=== PATIENT | female | born 1980 | race Caucasian/White ===

== ENCOUNTER 2016-11-13 08:00 | Outpatient (CLI) | payer OTHER | END 2016-11-13 23:59 | disposition home or self-care (01) | LOC: LAB.R 08:00 | PROVIDERS: ATTEND Obstetrics & Gynecology | DX: Z11.3 Encounter for screening for infections with a predominantly sexual mode of transmission (principal) | CPT/HCPCS: 87491; 87591 ==

== ENCOUNTER 2016-11-15 15:35 | Outpatient (CLI) | payer OTHER ==
[2016-11-15 16:22] LABS: BILIRUBIN,URINE NEGATIVE (NEGATIVE)
[2016-11-15 16:24] LABS: BASOPHILS # (AUTO) 0.1 10^3/uL (0.0-0.1); BASOPHILS % (AUTO) 0.8 %; EOSINOPHILS # (AUTO) 0.1 10^3/uL (0.0-0.7); EOSINOPHILS % (AUTO) 1.3 %; HCT - HEMATOCRIT 39.8 % (37.0-47.0); HGB - HEMOGLOBIN 13.6 g/dL (12.0-16.0); LYMPHOCYTES # (AUTO) 2.3 10^3/uL (1.5-3.5); LYMPHOCYTES % (AUTO) 21.3 %; MEAN CORPUSCULAR HEMOGLOBIN 30.1 pg (27.0-31.0); MEAN CORPUSCULAR HGB CONC 34.2 g/dL (32.0-36.0); MEAN CORPUSCULAR VOLUME 88.1 fL (81.0-99.0); MEAN PLATELET VOLUME 8.3 fL (7.9-10.8); MONOCYTES # (AUTO) 0.8 10^3/uL (0.0-1.0); MONOCYTES % (AUTO) 7.1 %; NEUTROPHILS # (AUTO) 7.4 10^3/uL (1.5-6.6); NEUTROPHILS % (AUTO) 69.5 %; RED BLOOD COUNT 4.52 10^6/uL (4.20-5.40); RED CELL DISTRIBUTION WIDTH 11.9 % (12.0-15.0); UNCORRECTED WHITE BLOOD COUNT 10.7 x10^3/uL; WHITE BLOOD COUNT 10.7 x10^3/uL (4.8-10.8)
[2016-11-15 16:30] LABS: WBC,URINE 0-3 /HPF (0-5)
[2016-11-17 16:23] LABS: TEST RESULT REPORT (())
== END 2016-11-15 15:36 | disposition home or self-care (01) ==
LOC: LAB 15:35
PROVIDERS: ATTEND Obstetrics & Gynecology
DX: Z36 Encounter for antenatal screening of mother (principal)
CPT/HCPCS: 36415; 81001; 81599; 85025; 86762; 86780; 86850; 86900; 86901; 87340; 87389

== ENCOUNTER 2017-03-21 15:06 | Outpatient (CLI) | payer OTHER | END 2017-03-21 15:07 | disposition home or self-care (01) | LOC: LAB 15:06 | PROVIDERS: ATTEND Obstetrics & Gynecology | DX: Z36.9 Encounter for antenatal screening, unspecified (principal) | CPT/HCPCS: 36415; 82950; 85018; 86850 ==

== ENCOUNTER 2017-03-27 07:56 | Outpatient (CLI) | payer OTHER ==
[2017-03-27 08:51] LABS: GTT GLUCOSE,FASTING 85 mg/dL (70-100)
== END 2017-03-27 07:57 | disposition home or self-care (01) ==
LOC: LAB 07:56
PROVIDERS: ATTEND Obstetrics & Gynecology
DX: O99.810 Abnormal glucose complicating pregnancy (principal)
CPT/HCPCS: 36415; 82951

== ENCOUNTER 2017-05-02 09:46 | Outpatient (CLI) | payer OTHER ==
[2017-05-02 10:16] VITALS: BP 102/62
== END 2017-05-02 10:45 | disposition home or self-care (01) ==
LOC: WFO 09:46 → FBP 09:55 → WFO 10:45
PROVIDERS: ATTEND Obstetrics & Gynecology
DX: O30.043 Twin pregnancy, dichorionic/diamniotic, third trimester (principal); Z3A.32 32 weeks gestation of pregnancy
CPT/HCPCS: 59025

== ENCOUNTER 2017-05-07 10:39 | Outpatient (CLI) | payer OTHER | END 2017-05-07 10:40 | disposition home or self-care (01) | LOC: LAB.R 10:39 | PROVIDERS: ATTEND Obstetrics & Gynecology | DX: O36.8131 Decreased fetal movements, third trimester, fetus 1 (principal) | CPT/HCPCS: 82731 ==

== ENCOUNTER 2017-05-07 10:47 | Outpatient (CLI) | payer OTHER ==
[2017-05-07 11:52] VITALS: BP 116/70
== END 2017-05-07 12:15 | disposition home or self-care (01) ==
LOC: WFO 10:47 → FBP 10:50 → WFO 12:15
PROVIDERS: ATTEND Obstetrics & Gynecology
DX: O30.043 Twin pregnancy, dichorionic/diamniotic, third trimester (principal); Z3A.33 33 weeks gestation of pregnancy
CPT/HCPCS: 59025; 82731

== ENCOUNTER 2017-05-16 15:23 | Outpatient (CLI) | payer OTHER ==
[2017-05-16 16:20] VITALS: BP 116/65
== END 2017-05-16 16:24 | disposition home or self-care (01) ==
LOC: WFO 15:23 → FBP 15:31 → WFO 16:24
PROVIDERS: ATTEND Obstetrics & Gynecology
DX: O30.009 Twin pregnancy, unspecified number of placenta and unspecified number of amniotic sacs, unspecified trimester (principal); Z3A.00 Weeks of gestation of pregnancy not specified
CPT/HCPCS: 59025

== ENCOUNTER 2017-05-25 16:30 | Outpatient (CLI) | payer OTHER | END 2017-05-25 16:31 | disposition home or self-care (01) | LOC: LAB.R 16:30 | PROVIDERS: ATTEND Obstetrics & Gynecology | DX: Z36.89 Encounter for other specified antenatal screening (principal) | CPT/HCPCS: 87081 ==

== ENCOUNTER 2017-05-29 08:50 | Outpatient (CLI) | payer OTHER ==
[2017-05-29 09:04] VITALS: BP 108/64
== END 2017-05-29 10:10 | disposition home or self-care (01) ==
LOC: WFO 08:50 → FBP 08:54 → WFO 10:10
PROVIDERS: ATTEND Obstetrics & Gynecology
DX: O30.043 Twin pregnancy, dichorionic/diamniotic, third trimester (principal); Z3A.36 36 weeks gestation of pregnancy
CPT/HCPCS: 59025

== ENCOUNTER 2017-06-07 08:37 | Outpatient (CLI) | payer OTHER ==
[2017-06-07 09:08] VITALS: BP 116/62
== END 2017-06-07 09:45 | disposition home or self-care (01) ==
LOC: WFO 08:37 → FBP 08:38 → WFO 09:45
PROVIDERS: ATTEND Obstetrics & Gynecology
DX: O30.003 Twin pregnancy, unspecified number of placenta and unspecified number of amniotic sacs, third trimester (principal); Z3A.37 37 weeks gestation of pregnancy
CPT/HCPCS: 59025

== ENCOUNTER 2017-06-13 05:46 | Inpatient (IN) | payer OTHER ==
--- NOTE | 2017-06-12 10:48 | PREOP HISTORY & PHYSICAL ---
DATE OF ADMISSION: 06/13/2017 Physician: Bisi Squires DO IDENTIFICATION: This is a 37-year-old G3, P1-0-1-1 with 38-1/7-week intrauterine . EDC is 06/25/2017, consistent with an 8-week ultrasound. HISTORY OF PRESENT ILLNESS: This patient presents today for her scheduled preoperative visit. Patient has a diamniotic dichorionic twin gestation that was diagnosed at her 8-week ultrasound. Her has so far been unremarkable. She has had routine care including serial ultrasounds for growth at the [facility]. She has also been having weekly nonstress tests, which have been very reassuring. She has had no problems with diabetes, hypertension, bleeding or labor with this . Most recent bedside ultrasound on 05/29/2017 at 36 weeks 1 day showed that the babies are both cephalic with both backs to the maternal right side. Twin A is a male, and twin B is a female. Most recent 05/22/2017 [facility] growth ultrasound showed that twin A, whose anticipated name is Aleksandar, has a right lateral placenta that is a 3-vessel cord, amniotic fluid is normal with the MVP of 3.7 cm, estimated weight is 2670 grams or in the 55th percentile. Twin B is a female fetus with anticipated name of Allyssa has a left lateral placenta and 3-vessel umbilical cord. There is a normal amniotic fluid index with an MVP of 3.6 cm; estimated weight is 2814 grams, giving her 71st percentile. There was an incidental large left simple cyst measuring 5.3 x 6.0 x 5.0 cm. Appropriate growth for both fetuses. The patient's obstetrical history has been significant for a prior delivery for son, Nikita. Nikita underwent a primary delivery secondary to nonreassuring heart tones and a cervix remote from delivery. I recommended to the patient that we proceed to a scheduled repeat delivery. She also voiced her desire for permanent sterilization. I have had multiple discussions with her regarding the risks, benefits, alternatives, indications, expectations of repeat delivery as well as a bilateral salpingectomy. Patient understands the risk of hemorrhage, infection and damage to surrounding organs. With respect to damage to surrounding organs this may include, but is not limited to, an inverted laceration cauterization or ligation of the adjacent intestines, ureters, and bladder. Furthermore, with respect to sterilization, she understands that this surgery is meant to be irreversible. Patient understands that there are different forms of contraception available to her and that sterilization is not her only option. This includes systemic hormones, IUDs, NuvaRing, Nexplanon, and condoms. Although this surgery is meant to be permanent and irreversible there is an intrinsic tubal failure rate of less than 1%. Should the patient feel she is after this procedure, she is to contact me immediately, as there is an increased risk of an ectopic . After all of her questions were answered to her satisfaction she verbalized her desire to proceed with a repeat delivery and bilateral salpingectomy on 06/13/2017. Also, given the known presence of a left simple ovarian cyst, should this still be present during the case, I will go ahead and remove the cyst, as it may lead to ovarian torsion and cause the patient to undergo another surgery. The patient is currently is doing well. Denies any nausea, vomiting, fevers, chills, diarrhea, constipation. She reports that the babies are moving well and denies any vaginal bleeding, loss of fluid, or significant contractions. PAST MEDICAL HISTORY: GERD. PAST SURGICAL HISTORY: delivery x1 on 08/19/2014 at 41 weeks gestation. ALLERGIES: NO KNOWN DRUG ALLERGIES. MEDICATIONS 1. vitamins. 2. Pepcid p.r.n. SOCIAL HISTORY: The patient has a remote history of tobacco smoking. She quit more than a year ago and smoked for 10 years for less than 1 pack a day. She denies any alcohol or illicit drug use. Her is Javed, and her oldest son is Nikita. These are twins with anticipated names of Aleksandar and Allyssa. Her pharmacy of choice is [facility] in [place], [place]. PAST SURGICAL HISTORY: On 08/19/2014 at 41 weeks' gestation, a delivery secondary to nonreassuring heart tones and cervix remote from delivery of a viable male named Nikita. He weighed 9 pounds 9 ounces at [facility]. PAST ONCOLOGY HISTORY: She has had abnormal Pap smears with spontaneous resolution. She denies any cold knife cone, LEEPS, or cryotherapy. She denies any other sexually transmitted diseases. FAMILY HISTORY: Mother had a stroke at age 73. Brother had history with alcohol or drugs. REVIEW OF SYSTEMS: Negative unless otherwise stated. She denies any diarrhea, constipation, fevers or chills. PHYSICAL EXAMINATION VITAL SIGNS: Height is 64 inches. Weight is 212 pounds. BMI is 36.4, blood pressure 110/70. GENERAL: She is a well-developed, well-nourished, female, in no apparent distress. She is alert and oriented x3. She is extremely pleasant and easy to speak to. She is very intelligent. HEENT: Within normal limits. HEART: Regular. No murmurs or rubs. LUNGS: Lungs are clear to auscultation bilaterally. ABDOMEN: Gravid, nontender. Fundal height is 43 cm. A 36 week bedside ultrasound revealed that the babies were vertex-vertex. Twin A is male, twin B female. LABORATORY: Data reveal that she is chlamydia and gonorrhea negative. Blood type is O positive, antibody screen is negative. HIV negative. Rubella immune, hepatitis B surface antigen negative. RPR nonreactive. One hour GTT was 172, 3-hour is 85, 171, 167, 133, GBS negative. ASSESSMENT 1. A 37-year-old G3, P1-0-1-1 at 38-2/7 week di/di twin gestation. 2. Prior delivery x1. 3. Desires permanent sterilization. 4. Left simple ovarian cyst. PLAN 1. She is to get a preop CBC and typed and screened in anticipation for tomorrows surgery. 2. Consent forms have been signed for repeat delivery and bilateral tubal sterilization. Also consented the patient for a left ovarian cystectomy. 3. We will proceed to surgery tomorrow on 06/13/2017. 4. Anticipate using Prevena wound VAC to maximize healing. 5. She is to see me at [facility] next week for removal of Prevena wound VAC. 6. Prescriptions for ibuprofen, Tylenol, Colace, and oxycodone have been given to the patient for postoperative care. 7. She is to call should she have any worsening fevers, chills, abdominal pain or vaginal bleeding. TD: 06/11/2017 12:37 [facility]
[~2017-06-13 05:46] MED LIST: ONDANSETRON 4 MG/2 ML VIAL IVP PRN; SODIUM CHLORIDE FLUSH 0.9% 10 ML SYRINGE IVP PRN; ceFAZolin 2 GM/50 ML 2 GM/50 ML BAG IV SCH
[2017-06-13] MEDS: LACTATED RINGERS 1,000 ML IV SCH ×2 (06:30→19:34)
[2017-06-13 07:07] LABS: BASOPHILS # (AUTO) 0.1 10^3/uL (0.0-0.1); BASOPHILS % (AUTO) 0.7 %; EOSINOPHILS # (AUTO) 0.1 10^3/uL (0.0-0.7); EOSINOPHILS % (AUTO) 1.2 %; HGB - HEMOGLOBIN 13.6 g/dL (12.0-16.0); LYMPHOCYTES # (AUTO) 1.7 10^3/uL (1.5-3.5); LYMPHOCYTES % (AUTO) 16.2 %; MEAN CORPUSCULAR HEMOGLOBIN 29.8 pg (27.0-31.0); MEAN CORPUSCULAR HGB CONC 33.8 g/dL (32.0-36.0); MEAN CORPUSCULAR VOLUME 88.3 fL (81.0-99.0); MEAN PLATELET VOLUME 9.8 fL (7.9-10.8); MONOCYTES # (AUTO) 0.9 10^3/uL (0.0-1.0); NEUTROPHILS # (AUTO) 7.8 10^3/uL (1.5-6.6); NEUTROPHILS % (AUTO) 73.9 %; PLT - PLATELET COUNT 166 10^3/uL (130-450); RED BLOOD COUNT 4.56 10^6/uL (4.20-5.40); RED CELL DISTRIBUTION WIDTH 13.8 % (12.0-15.0); WHITE BLOOD COUNT 10.6 x10^3/uL (4.8-10.8)
[2017-06-13] MEDS ORDERED: CITRIC ACID/SODIUM CITRATE 15 ML UDC PO SCH (07:30)
[2017-06-13] MEDS ORDERED: LACTATED RINGERS 1,000 ML IV ONE ×3 (07:42→09:35)
[2017-06-13] MEDS ORDERED: ePHEDrine 50 MG/ML VIAL IVP ONE (08:40)
[2017-06-13] MEDS ORDERED: MORPHINE PF 5 MG/10 ML AMP EP ONE (08:40)
[2017-06-13] MEDS ORDERED: OXYTOCIN 10 UNIT/ML VIAL IV ONE (08:40)
[2017-06-13] MEDS ORDERED: ONDANSETRON 4 MG/2 ML VIAL IVP ONE (08:40)
[2017-06-13] MEDS ORDERED: ACETAMINOPHEN 1,000 MG/100 ML 100 ML IV ONE (08:40)
[2017-06-13] MEDS ORDERED: KETOROLAC 30 MG/ML VIAL IVP ONE (08:40)
[2017-06-13] MEDS ORDERED: MORPHINE 10 MG/ML VIAL IVP ONE (08:40)
[2017-06-13] MEDS: ACETAMINOPHEN 500 MG TABLET PO SCH ×2 (08:50→18:04)
[2017-06-13] MEDS ORDERED: OXYTOCIN/SODIUM CHLORIDE 250 ML IV SCH (09:00)
[2017-06-13] MEDS ORDERED: diphenhydrAMINE INJ 50 MG/ML VIAL IVP PRN ×2 (09:37→10:58)
[2017-06-13] MEDS ORDERED: MAGNESIUM HYDROXIDE 2,400 MG/30 ML UDC PO PRN (09:37)
--- NOTE | 2017-06-13 10:04 | OPERATIVE REPORT ---
Operative Report - General Admit Date: 06/13/17 - Other Other Information/Narrative: Date of operation: 06/13/2017 Surgeon: Bisi Squires DO FACOG [place]: MATILDE Louie Anesthestist: Baylee Figueroa CRNA Anesthesia: Spinal Pre-op Dx: 1. 37 yo with a 38w2d IUP 2. Prior CD x 1 3. Di-di twin gestation 4. Desired permanent sterilization 5. Left ovarian cyst Post-op Dx: 1. 37 yo with a 38w2d IUP 2. Prior CD x 1 3. Di-di twin gestation 4. Desired permanent sterilization 5. Left ovarian cyst Procedures: 1. Repeat delivery 2. Left ovarian cystectomy 3. Bilateral salpingectomy Findings: 1. Twin A: Viable male "Aleksandar", VTX, Apgars 9/9. 2. Twin B: Viable female "Alysia" VTX, Apgars 9/9. 3. Normal uterus, fallopian tubes and right ovary. 3. Left ovarian cyst Specimens: 1. Placenta (one clip on cord A, two clips on cord B) 2. Cord blood x 2 3. Left ovarian cyst 4. Bilateral fallopian tubes Drains: 1. Huntley catheter to gravity 2. Prevena wound vac EBL: 1000 mL Complications: None Dicatation: [id number]
[2017-06-13] MEDS ORDERED: NALBUPHINE 20 MG/ML AMP IVP PRN (10:52)
[2017-06-13] MEDS ORDERED: diphenhydrAMINE INJ 50 MG/ML VIAL IV PRN (10:53)
[2017-06-13] MEDS ORDERED: diphenhydrAMINE 25 MG CAPSULE PO PRN (10:54)
[2017-06-13] MEDS ORDERED: METOCLOPRAMIDE 10 MG/2 ML VIAL IVP PRN (10:54)
[2017-06-13] MEDS ORDERED: NALOXONE 0.4 MG/ML VIAL IVP PRN (11:00)
[2017-06-13] MEDS ORDERED: MORPHINE 2 MG/ML CARPUJECT IVP PRN (11:00)
[2017-06-13] MEDS: CELECOXIB 100 MG CAPSULE PO SCH ×2 (12:00→21:21)
[2017-06-13] MEDS ORDERED: MORPHINE 2 MG/ML SYRINGE IVP PRN (12:42)
[2017-06-13] MEDS: oxyCODONE 5 MG TABLET PO SCH (13:00)
[2017-06-13] MEDS: SIMETHICONE CHEW 80 MG TABLET PO SCH ×2 (13:09→21:21)
[2017-06-13] MEDS: DOCUSATE SODIUM 100 MG CAPSULE PO SCH (21:21)
[2017-06-14] MEDS: oxyCODONE 5 MG TABLET PO SCH ×7 (04:54→18:47)
[2017-06-14] MEDS: ACETAMINOPHEN 500 MG TABLET PO SCH ×3 (04:54→21:17)
--- NOTE | 2017-06-14 08:07 | PROVIDER PROGRESS NOTE ---
Subjective - Prog Note Date Prog Note Date: 06/14/17 Prog Note Time: 08:03 - Subjective Pt reports feeling: Improved Subjective: Patient lying in bed, eating breakfast. Feeling tired. Dr. Kraft examining babies. Aleksandar weighed 6 lbs 15oz and Alysia 6 lbs 3oz. Pain controlled and zhang catheter removed. Saline lock. Has not urinated yet. Would like Rx Miralax. Objective - Vital Signs/Intake & Output Vital Signs: Vital Signs x48h Temp Pulse Resp BP Pulse Ox 06/14/17 05:00 98.2 F 80 16 111/55 L 97 06/14/17 00:43 97.9 F 83 16 108/59 L 97 Intake & Output: Intake & Output 06/11/17 06/12/17 06/13/17 06/14/17 23:59 23:59 23:59 23:59 Intake Total 750 1302.5 Output Total 325 3350 Balance 425 -2047.5 - Objective General Appearance: positive: No acute distress Eyes Bilateral: positive: Normal inspection Abdomen: positive: Non-tender (Wound vac in place and working well) Neurologic/Psychiatric: positive: Oriented x3 - Lab Results Fish Bones: 06/13/17 06:54 Assessment/Plan - Problem List (1) Twin delivery by Impression: 37 yo S/p repeat CD, BS and left ovarian cystectomy 06/13/2017. Normal recovery. Routine care. Aggressive pain control with routine Celebrex and Tylenol; oxycodone as well. Ambulate and shower today. Remove saline lock. Rx miralax.
[2017-06-14] MEDS ORDERED: POLYETHYLENE GLYCOL 3350 17 GM PACKET PO PRN (08:08)
[2017-06-14] MEDS: DOCUSATE SODIUM 100 MG CAPSULE PO SCH ×2 (09:10→21:17)
[2017-06-14] MEDS: CELECOXIB 100 MG CAPSULE PO SCH ×2 (09:10→21:18)
[2017-06-14] MEDS: SIMETHICONE CHEW 80 MG TABLET PO SCH ×3 (09:10→18:36)
--- NOTE | 2017-06-14 11:00 | OPERATIVE REPORT ---
DATE OF SERVICE: 06/13/2017 Physician: Bisi Squires DO DATE OF OPERATION: 06/13/2017 SURGEON: Bisi Squires DO, FACOG GARBAGE PICK UP WORKER: uRby Gomez CNM, ARNP. CARDIOLOGY TECHNOLOGIST: Baylee Muhammad CRNA. ANESTHESIA: Spinal. PREOPERATIVE DIAGNOSES 1. A 37-year-old G3, P1-0-1-1 with 38 and 2/7 week intrauterine . 2. Prior delivery x1. 3. Diamniotic dichorionic twin gestation. 4. Desired permanent sterilization. 5. Left ovarian cyst. POSTOPERATIVE DIAGNOSES 1. A 37-year-old G3, P1-0-1-1 with 38 and 2/7 week intrauterine . 2. Prior delivery x1. 3. Diamniotic dichorionic twin gestation. 4. Desired permanent sterilization. 5. Left ovarian cyst. PREOPERATIVE PROCEDURE 1. Repeat delivery. 2. Left ovarian cystectomy. 3. Bilateral salpingectomy. FINDINGS: 1. Twin A: Viable male infant named Aleksandar in the vertex presentation. Apgars 9 and 9 at 1 and 5 minutes respectively. 2. Twin B: Viable female infant named Alysia in vertex presentation. Apgars 9 and 9 at 1 and 5 minutes respectively. 3. Normal uterus, fallopian tubes, and right ovary. 4. Left ovarian cyst. SPECIMENS 1. Placenta with 1 clip on cord A and 2 clips on cord B. 2. Cord blood x2. 3. Left ovarian cyst. 4. Bilateral fallopian tubes. DRAINS 1. Huntley catheter to gravity. 2. Prevena wound VAC. ESTIMATED BLOOD LOSS: 1000 mL COMPLICATIONS: None. BRIEF HISTORY: The patient is a patient of [facility] with whom we have been taking care of throughout her entire course. The patient was found to have a diamniotic dichorionic twin gestation at her first visit on 11/13/2016. Ultrasound of that time at 8 weeks was consistent with dates. The patient has had an unremarkable with the exception of the twin gestation. She has been seen routinely and has been getting nonstress tests and a growth ultrasounds as recommended. She has not had any irregular bleeding, hypertension or labor during this entire . The patient also verbalized her desire for a permanent sterilization, and consent forms were signed on 03/16/2017. A left ovarian cyst was noted during this and it was described as a simple cyst. The dimensions measured approximately 3.8 x 4.4 x 5.5 cm. It is also noted that the patient had a delivery with her first delivery secondary to nonreassuring heart tones and cervix remote from delivery. I Recommend to the patient that we proceed to a delivery at 38 weeks, as per the current ACOG recommendations. I discussed with the patient the risks , benefits, alternatives, indications, expectations of a repeat delivery, bilateral salpingectomy and left ovarian cystectomy. Include our discussion was the risk of hemorrhage, infection and damage to surrounding organs, which may be an inadvertent laceration, cauterization or ligation of the adjacent ureters, bladder and intestines. Furthermore, with sterilization, the patient understands that this is not her only form of contraception and that her , Javed, may have a vasectomy or she may have a different type of contraception such as systemic hormones, the IUD, or barrier methods. The patient also understands that this procedure is meant to be permanent and is irreversible. After all of the patient's questions were answered to her satisfaction, she verbalized her desire to proceed with the aforementioned procedures. Consent forms have been signed. OPERATION IN DETAIL: The patient was identified, consented, and taken to the operating room where IV access was already in place. She was then given sequential compression devices, which were placed on the lower extremities and turned on. The patient was then given satisfactory spinal anesthesia per Baylee Muhammad. Two grams of Ancef were given to the patient prior to incision. The patient was then prepped and draped in normal sterile fashion in a dorsal supine position with a leftward tilt. A Huntley catheter was placed in her bladder. A timeout was performed, which correctly identified the patient, type of procedure and the procedures themselves. A repeat skin testing found that spinal anesthesia was satisfactorily. The patient's Pfannenstiel scar was first sharply excised. The incision was then carried through the underlying layer of fascia with electrocautery. Fascia was nicked in the midline and extended laterally. The rectus muscles were then dissected off the fascia. The rectus muscles were identified in the midline and sharply in the midline. Peritoneum was entered bluntly and the incision was extended superiorly and inferiorly. A bladder flap was then created by dissecting the vesicouterine peritoneum. The hysterotomy was made in a transverse fashion. The smooth muscle of the uterus itself was quite a thick layer consistent with a nonlaboring uterus. Amniotomy revealed clear fluid. Twin A delivered vertex with the help of fundal pressure. The nose and mouth were suctioned upon delivery of the head. Again, with the help of fundal pressure, the rest of the baby delivered through the hysterotomy. The umbilical cord was doubly clamped and cut and the was then handed off to Dr. Baylee Barrett, the on-call laborer salvage. Umbilical cord blood was then obtained and sent off. One yellow plastic umbilical clamp was placed on twin A's remaining umbilical cord. Palpation of the second amnion revealed that Twin B was still vertex. Amniotomy revealed clear fluid. Again, with the help of fundal pressure, the delivered through the hysterotomy easily without difficulty. The nose and mouth were also suctioned with the bulb syringe. The umbilical cord was doubly clamped and cut and the again was handed off to Dr. Barrett. Umbilical cord blood was obtained and sent off. Two yellow umbilical clamps were placed on twin B's umbilical cord. The uterus was then massaged and placenta delivered manually. The uterus was then delivered out of the abdomen and cleared of all clots and debris. The hysterotomy was then closed with 2 stitches of 0 Vicryl, first in a running locked fashion and then in a Lembert stitch imbricating the hysterotomy. Hemostasis was noted. Attention was then turned towards the left ovarian cystectomy. An incision was made on the left ovary sharply. The left ovarian cyst was then sharply shelled out of the ovary. It was sent off the field intact. The left ovary was then closed with a single running stitch of 2-0 Vicryl. Hemostasis was noted. Attention was then turned towards the bilateral salpingectomy. The right fallopian tube was first identified and followed out to the fimbriated end. The fallopian tube was then excised using the LigaSure. Hemostasis was noted. In a similar fashion, the left fallopian tube was identified and then excised with the LigaSure. Again, hemostasis was noted. The uterus was then returned to the abdomen and the abdomen was copiously irrigated. Hemostasis was noted. The peritoneum was then closed with a running stitch of 2-0 Vicryl. The same stitch was used to reapproximate the rectus muscle. Fascia was then closed with 0 Vicryl in a running fashion. The Chuy's tissue was then reapproximated with a running stitch of 0 Vicryl. Skin was then closed with 4-0 Monocryl in subcuticular fashion. A Prevena wound VAC was finally placed on top of the incision. The patient tolerated the procedure well and was taken to the recovery room in stable and awake condition. The patient did receive Toradol as well as Ofirmev during closure of the incision in order to help with postoperative pain control. I will continue the patient on scheduled doses of Celebrex as well as Tylenol. She will also have scheduled oxycodone. All sponge, lap, and needle counts were correct x2 as per nurse report. TD: 06/13/2017 11:55 MTDD
[2017-06-14] MEDS: LACTATED RINGERS 1,000 ML IV SCH ×4 (11:52→11:55)
[2017-06-14] MEDS: SODIUM CHLORIDE FLUSH 0.9% 10 ML SYRINGE IVP SCH ×3 (11:52→11:54)
[2017-06-14] MEDS: BENZOCAINE/MENTHOL LOZENGE MM PRN (21:24)
[2017-06-15] MEDS: oxyCODONE 5 MG TABLET PO SCH ×4 (05:25→13:41)
[2017-06-15] MEDS: ACETAMINOPHEN 500 MG TABLET PO SCH ×3 (05:47→23:43)
[2017-06-15] MEDS: BENZOCAINE/MENTHOL LOZENGE MM PRN (05:50)
[2017-06-15] MEDS: DOCUSATE SODIUM 100 MG CAPSULE PO SCH ×2 (10:25→20:28)
[2017-06-15] MEDS: CELECOXIB 100 MG CAPSULE PO SCH ×2 (10:25→20:28)
[2017-06-15] MEDS: SIMETHICONE CHEW 80 MG TABLET PO SCH ×2 (10:25→20:28)
--- NOTE | 2017-06-15 12:38 | PROVIDER PROGRESS NOTE ---
Subjective - Prog Note Date Prog Note Date: 06/15/17 Prog Note Time: 12:34 - Subjective Pt reports feeling: Improved Subjective: Patient doing well. Breast feeding Alysia. Feeling better. Pain controlled ( declining oxycodone). Ambulating and tolerating a regular diet. Urinating without difficulty. Desires to go home tomorrow. Objective - Vital Signs/Intake & Output Reviewed Vital Signs: Yes Vital Signs: Vital Signs x48h Temp Pulse Resp BP Pulse Ox 06/15/17 09:32 97.9 F 74 16 113/66 97 Intake & Output: Intake & Output 06/12/17 06/13/17 06/14/17 06/15/17 23:59 23:59 23:59 23:59 Intake Total 750 1302.5 Output Total 325 3650 Balance 425 -2347.5 - Objective General Appearance: positive: No acute distress Abdomen: positive: Non-tender (Prevena wound vac in place and working well) Neurologic/Psychiatric: positive: Oriented x3, Mood/affect nml - Lab Results Fish Bones: 06/13/17 06:54 Assessment/Plan - Problem List (1) Twin delivery by Impression: 37 yo S/p repeat CD, BS and left ovarian cystectomy Normal recovery Routine care Scheduled Celebrex and acetaminophen Anticipate home tomorrow Has appointment for removal of Prevena wound vac 06/19/2017
--- NOTE | 2017-06-15 17:44 | DISCHARGE SUMMARY ---
Physician: Bisi Squires DO DATE OF ADMISSION: 06/13/2017 DATE OF DISCHARGE: 06/16/2017 DIAGNOSES ON ADMISSION: 1. A 37-year-old G3, P1-0-1-1 with 38 and 1/7 week intrauterine . 2. Di/di twin gestation. 3. Left ovarian cyst. DIAGNOSIS ON DISCHARGE: 1. A 37-year-old G3, P2-0-1-3, status post repeat delivery, bilateral salpingectomy, left ovarian cystectomy on 06/13/2017. 2. Normal recovery. HISTORY OF PRESENT ILLNESS: Masha Purvis presented to [facility] on 06/13/2017 for a scheduled repeat delivery. HOSPITAL COURSE: This is a known twin gestation. Masha underwent an unremarkable repeat delivery, bilateral salpingectomy and left ovarian cystectomy. EBL was about 1000 mL and she delivered two viable fetuses. Twin A is Aleksandar who weighed 6 pounds 15 ounces and the second twin, Alysia, who weighed 6 pounds 3 ounces. Apgars were 9 and 9 at 1 and 5 minutes respectively for each twin. Masha has had an unremarkable recovery. She is ambulating, tolerating a regular diet. She is urinating without difficulty. Her pain is controlled with Celebrex as well as Tylenol. She is urinating without difficulty. Anticipate discharge to home on 06/16/2017. Masha already has prescriptions for ibuprofen, Tylenol, Colace and Oxycodone should she need it. Masha will see me at [facility] on 06/19/2017 for removal of Prevena wound VAC, 1 week after that and for a routine 6-week visit. Masha will call should she have any worsening fevers, chills, abdominal pain or vaginal bleeding. TD: 06/15/2017 18:21 BRIAN
[2017-06-16] MEDS: ACETAMINOPHEN 500 MG TABLET PO SCH (07:59)
[2017-06-16] MEDS: CELECOXIB 100 MG CAPSULE PO SCH (09:01)
[2017-06-16] MEDS: DOCUSATE SODIUM 100 MG CAPSULE PO SCH (09:01)
[2017-06-16] MEDS: SIMETHICONE CHEW 80 MG TABLET PO SCH ×2 (09:01→14:23)
--- NOTE | 2017-06-16 09:33 | PROVIDER PROGRESS NOTE ---
Subjective - Prog Note Date Prog Note Date: 06/16/17 Prog Note Time: 09:31 - Subjective Pt reports feeling: Improved Subjective: Patient in bed, snuggling Alysia. Aleksandar in the bassinet sleeping. Doing well. Would like to go home by 3 PM since she has a friend watching [employer]. Pain well controlled. No nausea or vomiting. Ambulating and urinating without difficulty. Bleeding light. Objective - Vital Signs/Intake & Output Reviewed Vital Signs: Yes Vital Signs: Vital Signs x48h Temp Pulse Resp BP Pulse Ox 06/16/17 09:04 98.6 F 72 16 124/72 99 Intake & Output: Intake & Output 06/13/17 06/14/17 06/15/17 06/16/17 23:59 23:59 23:59 23:59 Intake Total 750 1302.5 Output Total 325 3650 Balance 425 -2347.5 - Objective General Appearance: positive: No acute distress Eyes Bilateral: positive: Normal inspection Abdomen: positive: Non-tender (Wound vac in place and working well) - Lab Results Fish Bones: 06/13/17 06:54 Assessment/Plan - Problem List (1) Twin delivery by Impression: 37 yo S/p repeat CD, BS and left ovarian cystectomy 06/13/2017 Normal recovery Discharge to home. Follow up next week for removal of Prevena wound vac. Patient has Rx at home for care. Limited activity-- less than 10 lbs. Call for worsening fevers, chills, abdominal pain or vaginal bleeding. Discharge Plan Disposition: Home, Self Care Condition: Good Diet: Regular Activity Restrictions: No lifting > 10 lbs Shower Restrictions: No Driving Restrictions: Yes (No driving after taking oxycodone) Weight Bearing: Full Weight No Smoking: If you smoke, Please STOP! Call for help.
[2017-06-16 15:32] VITALS: BP 122/67
== END 2017-06-16 15:00 | disposition home or self-care (01) | DRG 765 ==
LOC: FBP 05:46
PROVIDERS: ADMIT Obstetrics & Gynecology; ATTEND Obstetrics & Gynecology
PROC: 0UT70ZZ Resection of Bilateral Fallopian Tubes, Open Approach (ICD-10-PCS; 2017-06-13)
PROC: 0UB13ZZ Excision of Left Ovary, Percutaneous Approach (ICD-10-PCS; 2017-06-13)
PROC: 10D00Z1 Extraction of Products of Conception, Low, Open Approach (ICD-10-PCS; principal; 2017-06-13 07:30)
DX: O34.211 Maternal care for low transverse scar from previous cesarean delivery (principal); O30.043 Twin pregnancy, dichorionic/diamniotic, third trimester; Z30.2 Encounter for sterilization; O34.83 Maternal care for other abnormalities of pelvic organs, third trimester; N83.292 Other ovarian cyst, left side; N85.8 Other specified noninflammatory disorders of uterus; Z3A.39 39 weeks gestation of pregnancy; Z37.2 Twins, both liveborn; Z87.891 Personal history of nicotine dependence
CPT/HCPCS: 85025; 88302; 88305; 88307

== ENCOUNTER 2019-11-20 15:18 | Outpatient (CLI) | payer OTHER ==
--- NOTE | 2019-11-20 15:41 | XRAY Report ---
Reason: RIGHT KNEE PAIN Procedure Date: 11/20/2019 Accession Number: [id number] / [id number] Procedure: WCP - Knee 3 View RT CPT Code: Final Report FULL RESULT: PROCEDURE: Knee 3 View RT INDICATIONS: RIGHT KNEE PAIN TECHNIQUE: 3 views of the right knee(s) were acquired. COMPARISON: None. FINDINGS: Bones: No fractures or dislocations. No suspicious bony lesions. Mild tricompartmental periarticular osteophyte formation. Soft tissues: No joint effusion. No suspicious soft tissue calcifications. IMPRESSION: Osteoarthritis. No acute fracture. No osseous lesion. If symptoms and/or clinical suspicion for pathology continue, further assessment with repeat plain films, or advanced imaging (e.g., CT, MRI, or bone scan) is recommended for further assessment. Reviewed by: Abdiel Parker MD on 11/20/2019 3:40 PM PDT Approved by: Abdiel Parker MD on 11/20/2019 3:40 PM PDT Station ID: [id number]
== END 2019-11-20 23:59 | disposition home or self-care (01) ==
LOC: DI.WCP 15:18
PROVIDERS: ATTEND Family Medicine
DX: M17.11 Unilateral primary osteoarthritis, right knee (principal)

== ENCOUNTER 2020-05-03 14:00 | Outpatient (CLI) | payer BC | END 2020-05-03 14:01 | disposition home or self-care (01) | LOC: COV 14:00 | PROVIDERS: ATTEND Family Medicine | DX: R05 Cough (principal); R53.83 Other fatigue; J02.9 Acute pharyngitis, unspecified; R09.81 Nasal congestion; Z20.828 Contact with and (suspected) exposure to other viral communicable diseases ==

== ENCOUNTER 2020-08-16 21:38 | Outpatient (CLI) | payer BC | END 2020-08-16 21:39 | disposition home or self-care (01) | LOC: COV 21:38 | PROVIDERS: ATTEND Family Medicine | DX: Z20.822 Contact with and (suspected) exposure to COVID-19 (principal) ==